=== PATIENT | male | born 1970 ===

== ENCOUNTER 2016-06-12 20:02 | Emergency (ER) | payer OTHER ==
[2016-06-12 20:07] VITALS: BMI 29.7
[2016-06-12 20:12] VITALS: RESP 16; TEMP 98.6; O2SAT 99
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
[2016-06-12 20:58] VITALS: BP 140/90; PULSE 70
== END 2016-06-12 20:53 | disposition home or self-care (01) ==
LOC: ED 20:02
DX: M54.5 Low back pain (principal); I10 Essential (primary) hypertension
CPT/HCPCS: 96372; 99283; J1885

== ENCOUNTER 2017-06-24 08:35 | Emergency (ER) | payer MEDICAID, OTHER ==
[2017-06-24 08:36] VITALS: BMI 29.7
[2017-06-24] MEDS ORDERED: Sodium Chloride 0.9% 1,000 ML IV STA (08:55)
[2017-06-24] MEDS ORDERED: Sodium Chloride 0.9% 1,000 ML IV SCH (09:00)
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
[2017-06-24 09:38] LABS: BASO # 0.03 K/mm3 (0.0-2.0); BASO % 0.7 % (0.0-3.0); EOS # 0.2 (0.0-0.7); EOS % 4.7 % (1.5-5.0); GRAN # 1.98 (1.4-6.5); GRAN % 46.2 % (50.0-68.0); LYMPH # 1.8 (1.2-3.4); LYMPH % 41.4 % (22.0-35.0); MEAN CELL VOLUME 88.2 fl (80.0-105.0); MEAN CORPUSCULAR HEMOGLOBIN 30.9 pg (25.0-35.0); MEAN PLATELET VOLUME 10.4 fl (7.0-11.0); MONO # 0.3 (0.1-0.6); RBC 5.18 10^6/uL (3.5-6.1); RED CELL DISTRIBUTION WIDTH 12.9 % (11.5-14.5); WHITE BLOOD COUNT 4.3 10^3/ul (4.5-11.0)
[2017-06-24 09:44] LABS: ALB/GLOB RATIO 1.2 (1.1-1.8); ALBUMIN 4.1 g/dL (3.0-4.8); ALT/SGPT 143 U/L (7-56); AST/SGOT 67 U/L (17-59); BLOOD UREA NITROGEN 19 mg/dL (7-21); CALCIUM 9.4 mg/dL (8.4-10.5); GFR AFRICAN-AMERICAN > 60; GFR NON-AFRICAN AMERICAN > 60
--- NOTE | 2017-06-24 09:46 | CT ---
PROCEDURE: CT Abdomen and Pelvis without intravenous contrast HISTORY: Nephrolithiasis COMPARISON: Abdomen ultrasound 10/20/2013. TECHNIQUE: Helical CT of the abdomen and pelvis was performed without oral or intravenous contrast as per referring physician request.. Contrast Dose: None Radiation dose: Total exam DLP = 860.76 mGy-cm. This CT exam was performed using one or more of the following dose reduction techniques: Automated exposure control, adjustment of the mA and/or kV according to patient size, and/or use of iterative reconstruction technique. FINDINGS: LOWER THORAX: Unremarkable. LIVER: Unremarkable. No gross lesion or ductal dilatation. GALLBLADDER AND BILE DUCTS: Cholelithiasis again identified within a mildly distended gallbladder which is otherwise unremarkable appearing. PANCREAS: Unremarkable. No gross lesion or ductal dilatation. SPLEEN: Unremarkable. ADRENALS: Unremarkable. No mass. KIDNEYS AND URETERS: No hydronephrosis. A small lucency is poorly characterized upper pole left kidney with remaining renal parenchyma unremarkable bilaterally. No perinephric reaction or radiodense urolithiasis bilaterally peer. VASCULATURE: Unremarkable. No aortic aneurysm. BOWEL: Unremarkable. No obstruction. No gross mural thickening. APPENDIX: Unremarkable. Normal appendix. PERITONEUM: Unremarkable. No free fluid. No free air. LYMPH NODES: Unremarkable. No enlarged lymph nodes. BLADDER: Unremarkable. REPRODUCTIVE: Unremarkable. BONES: No acute fracture. OTHER FINDINGS: None. IMPRESSION: No radiodense urolithiasis, obstructive uropathy or perinephric reaction bilaterally. A small lucency seen the upper pole left kidney is poorly characterized in this unenhanced CT examination. No focal pathology is identified in this location in the prior abdomen ultrasound exam 10/20/2013. Follow-up CT or MRI of the abdomen can be performed prior to and following intravenous contrast administration for more detailed evaluation. Further evaluation remaining abdominal and pelvic viscera is limited lack of oral and intravenous contrast agents. Cholelithiasis is reiterated at the gallbladder which is distended but otherwise unremarkable in appearance.
[2017-06-24 10:52] LABS: URINE BILIRUBIN NEGATIVE (NEGATIVE); URINE BLOOD NEGATIVE (NEGATIVE); URINE GLUCOSE (UA) NEGATIVE (NEGATIVE); URINE LEUKOCYTE ESTERASE NEGATIVE Leu/uL (NEGATIVE); URINE PROTEIN NEGATIVE mg/dL (<30 mg/dL); URINE UROBILINOGEN 0.2 E.U./dL (<1 E.U./dL)
[2017-06-24 10:53] LABS: URINE APPEARANCE CLEAR (CLEAR); URINE COLOR YELLOW (YELLOW)
[2017-06-24 12:35] VITALS: BP 132/78; PULSE 78; RESP 18; TEMP 98.3; O2SAT 98
== END 2017-06-24 11:20 | disposition home or self-care (01) ==
LOC: ED 08:35
DX: M54.9 Dorsalgia, unspecified (principal); R35.0 Frequency of micturition; Z87.442 Personal history of urinary calculi; I10 Essential (primary) hypertension; F17.210 Nicotine dependence, cigarettes, uncomplicated
CPT/HCPCS: 74176; 80053; 81003; 83735; 85025; 96360; 99283; J7040